=== PATIENT | female | born 1965 | race Caucasian/White ===

== ENCOUNTER → 2016-08-22 | Outpatient (CLI) | payer OTHER ==
[~2016-08-22] MED LIST: GUAI100S6 PO; OLIVE LEAF; [UNRECOGNIZED DRUG - OTHER]
[2016-08-22 13:44] LABS: AUTOMATED NEUTROPHIL # 4.3 TH/MM3 (1.8-7.7); BASOPHIL # 0.1 TH/MM3 (0-0.2); BASOPHIL % 0.9 % (0.0-2.0); EOSINOPHIL # 0.1 TH/MM3 (0-0.4); EOSINOPHIL % 1.2 % (0.0-4.0); HEMATOCRIT 35.4 % (35.0-46.0); HEMO FLAGS DIFF FINAL; LYMPH % 32.9 % (9.0-44.0); LYMPHOCYTE # 2.5 TH/MM3 (1.0-4.8); MEAN CELL VOLUME 85.8 FL (80.0-100.0); MEAN CORPUSCULAR HEMOGLOBIN 29.9 PG (27.0-34.0); MEAN CORPUSCULAR HGB CONC 34.8 % (32.0-36.0); MONO % 8.6 % (0.0-8.0); NEUT % 56.4 % (16.0-70.0); PLATELET COUNT 254 TH/MM3 (150-450); RED BLOOD COUNT 4.13 MIL/MM3 (4.00-5.30); RED CELL DISTRIBUTION WIDTH 12.6 % (11.6-17.2); WHITE BLOOD COUNT 7.6 TH/MM3 (4.0-11.0)
[2016-08-22 14:16] LABS: ALKALINE PHOSPHATASE 93 U/L (45-117); ALT (GPT) 23 U/L (10-53); ANION GAP 8 MEQ/L (5-15); AST (GOT) 21 U/L (15-37); BICARBONATE 27.7 MEQ/L (21.0-32.0); BLOOD UREA NITROGEN 13 MG/DL (7-18); CHLORIDE 102 MEQ/L (98-107); GLOMERULAR FILTRATION RATE 96 ML/MIN (>89); GLUCOSE,FASTING 93 MG/DL (74-99); HDL CHOLESTEROL 58.4 MG/DL (40.0-60.0); LDL CHOLESTEROL 137 MG/DL (0-99); POTASSIUM 3.9 MEQ/L (3.5-5.1); SODIUM (NA) 138 MEQ/L (136-145); THYROXINE (T4) 7.3 MCG/DL (4.8-13.9); TOTAL BILIRUBIN ADULT 0.3 MG/DL (0.2-1.0)
== END ==
LOC: CLAB 13:13
PROVIDERS: ATTEND Family Medicine
DX: R53.83 Other fatigue (principal)
CPT/HCPCS: 36415; 80053; 80061; 84436; 84443; 84480; 85025

== ENCOUNTER 2017-01-20 13:51 | Emergency (ER) | payer OTHER ==
[~2017-01-20] VITALS: Ht 154.9 cm; Wt 56.0 kg
[2017-01-20 13:54] VITALS: BP 128/73; PULSE 62; RESP 16; TEMP 98.4; O2SAT 99
--- NOTE | 2017-01-20 14:01 | PD ---
Physical Exam Time Seen by Provider: 13:58 Narrative 51yo F, [employer] employee, c/o L thumb pain after a stack of chairs went down and crushed her thumb this morning. Patient seen in triage. VS reviewed. Awaiting bed placement. Data Data Last Documented VS Vital Signs Date Time Temp Pulse Resp B/P Pulse Ox O2 Delivery O2 Flow Rate FiO2 01/20/17 13:54 98.4 62 16 128/73 99 Room Air MDM Supervised Visit with EARNEST: Elizabeth Peña Jan 20, 2017 14:01
--- NOTE | 2017-01-20 14:18 | RADRPT ---
EXAM DATE/TIME: 01/20/2017 14:18 [place] COMPARISON: No previous studies available for comparison. INDICATIONS : Patient states stack of chairs fell on left thumb. Complains of pain in DIPJ of first digit left jessica summers MEDICAL HISTORY : None. SURGICAL HISTORY : None. ENCOUNTER: Initial ACUITY: 1 day PAIN SCORE: 7/10 LOCATION: Left hand, thumb FINDINGS: Examination of the first digit of the left hand demonstrates no evidence of fracture or dislocation. No radiopaque foreign bodies are seen. The soft tissues are intact. CONCLUSION: No acute fracture or joint dislocation. Rigo Jenkins MD on January 20, 2017 at 14:15 Board Certified Radiologist. This report was verified electronically.
--- NOTE | 2017-01-20 14:27 | PD ---
HPI Chief Complaint: Injury Time Seen by Provider: 14:22 Travel History International Travel<30 days: No Contact w/Intl Traveler<30days: No Traveled to known affect area: No History of Present Illness HPI 51-year-old female arrives complaining of pain in the left thumb. Multiple stacked chairs fell upon the interphalangeal articulation of the left thumb several hours prior to ER arrival. She's had minimal pain in the area since. The pain is worse with palpation and range of motion. Ice and elevation were helpful earlier. PFSH Past Medical History High Cholesterol: Yes Diabetes: No Diminished Hearing: No Glaucoma: No Hepatitis: No Hiatal Hernia: No Hypertension: No Neurologic: Yes (REYNAUD'S SYNDROME) Thyroid Disease: No Tetanus Vaccination: < 5 Years Influenza Vaccination: No ?: Not : 2 Para: 2 Miscarriage: 0 : 0 Past Surgical History Cardiac Surgery: Yes (CARDIIAC CATH) Genitourinary Surgery: Yes (ESWL) Oral Surgery: Yes (TONSILLECTOMY) Pacemaker: No Tonsillectomy: Yes Social History Alcohol Use: Yes (RARE GLASS WINE) Tobacco Use: No Substance Use: No Allergies-Medications (Allergen,Severity, Reaction): Coded Allergies: No Known Allergies (Verified , 01/20/17) Reported Meds & Prescriptions Reported Meds & Active Scripts Active No Active Prescriptions or Reported Medications Review of Systems Musculoskeletal: Positive: Pain Physical Exam Narrative GENERAL: 51 yo F, WNWD, pleasant, NAD SKIN: Warm and dry. HEAD: Normocephalic. EYES: No scleral icterus. No injection or drainage. GASTROINTESTINAL: Abdomen soft, non-tender, nondistended. MUSCULOSKELETAL: No cyanosis, or edema. TTP left thumb without gross deformity. Hand eating disorder specialist equal and intact bilaterally. BACK: Nontender without obvious deformity. No CVA tenderness. Data Data Last Documented VS Vital Signs Date Time Temp Pulse Resp B/P Pulse Ox O2 Delivery O2 Flow Rate FiO2 01/20/17 13:54 98.4 62 16 128/73 99 Room Air VS reviewed Orders Finger (Nri1lny) (01/20/17 ) MDM Medical Decision Making Medical Screen Exam Complete: Yes Emergency Medical Condition: Yes Medical Record Reviewed: Yes Differential Diagnosis fracture, contusion, dislocation Narrative Course Last 24 hours Impressions Finger X-Ray 01/20/17 0000 Signed Impressions: Service Date/Time: Friday, January 20, 2017 14:18 - CONCLUSION: No acute fracture or joint dislocation. Rigo Jenkins MD Pt reassured. Ok for return to work. Diagnosis Primary Impression: Thumb injury Qualified Code: S69.92XA - Thumb injury, left, initial encounter Additional Instructions: You have a choice when it comes to health care, and we are glad that you chose [facility]. Hopefully, we have met your expectations on today's visit. You are welcome to return to [facility] at any time, as we are committed to meeting the health care needs of our community. Med/Other Pt SpecificInfo: No Change to Meds Scripts No Active Prescriptions or Reported Meds Disposition: 01 DISCHARGE HOME Condition: Stable Sage Szymanski MD Jan 20, 2017 14:27
== END 2017-01-20 14:46 | disposition home or self-care (01) ==
LOC: NEPD 13:51
DX: S69.92XA Unspecified injury of left wrist, hand and finger(s), initial encounter (principal); I73.00 Raynaud's syndrome without gangrene; E78.00 Pure hypercholesterolemia, unspecified; W22.03XA Walked into furniture, initial encounter
CPT/HCPCS: 73140; 99283

== ENCOUNTER → 2017-12-06 | Outpatient (CLI) | payer OTHER ==
[2017-12-06 08:41] LABS: AUTOMATED NEUTROPHIL # 4.6 TH/MM3 (1.8-7.7); BASOPHIL # 0.1 TH/MM3 (0-0.2); BASOPHIL % 0.8 % (0.0-2.0); EOSINOPHIL # 0.1 TH/MM3 (0-0.4); EOSINOPHIL % 1.1 % (0.0-4.0); HEMATOCRIT 40.6 % (35.0-46.0); HEMOGLOBIN 14.2 GM/DL (11.6-15.3); LYMPHOCYTE # 1.9 TH/MM3 (1.0-4.8); MEAN CELL VOLUME 86.4 FL (80.0-100.0); MEAN CORPUSCULAR HEMOGLOBIN 30.1 PG (27.0-34.0); MEAN CORPUSCULAR HGB CONC 34.9 % (32.0-36.0); MEAN PLATELET VOLUME 7.5 FL (7.0-11.0); MONO % 8.8 % (0.0-8.0); MONOCYTE # 0.6 TH/MM3 (0-0.9); NEUT % 63.3 % (16.0-70.0); PLATELET COUNT 283 TH/MM3 (150-450); RED CELL DISTRIBUTION WIDTH 12.6 % (11.6-17.2); WHITE BLOOD COUNT 7.2 TH/MM3 (4.0-11.0)
[2017-12-06 09:06] LABS: ALBUMIN 4.2 GM/DL (3.4-5.0); AST (GOT) 23 U/L (15-37); BICARBONATE 29.4 MEQ/L (21.0-32.0); BLOOD UREA NITROGEN 9 MG/DL (7-18); CALCIUM 9.1 MG/DL (8.5-10.1); CHLORIDE 101 MEQ/L (98-107); CREATININE 0.64 MG/DL (0.50-1.00); GLOMERULAR FILTRATION RATE 97 ML/MIN (>89); GLUCOSE,FASTING 110 MG/DL (74-99); MAGNESIUM 2.3 MG/DL (1.5-2.5); SODIUM (NA) 136 MEQ/L (136-145)
[2017-12-06 09:21] LABS: ALKALINE PHOSPHATASE 90 U/L (45-117); ALT (GPT) 26 U/L (10-53); CHOLESTEROL 247 MG/DL (120-200); HDL CHOLESTEROL 49.4 MG/DL (40.0-60.0); LDL CHOLESTEROL 176 MG/DL (0-99); THYROXINE (T4) 8.6 MCG/DL (4.8-13.9); TOTAL BILIRUBIN ADULT 0.2 MG/DL (0.2-1.0); TOTAL PROTEIN 7.4 GM/DL (6.4-8.2); TRIGLYCERIDES 108 MG/DL (42-150)
[2017-12-06 17:06] LABS: HEMOGLOBIN A1C 5.5 % (4.3-6.0)
== END ==
LOC: CLAB 08:15
PROVIDERS: ATTEND Family Medicine
DX: R07.9 Chest pain, unspecified (principal); F41.9 Anxiety disorder, unspecified
CPT/HCPCS: 36415; 80053; 80061; 82533; 83036; 83735; 84436; 84443; 85025

== ENCOUNTER 2018-01-01 11:06 | Day surgery (SDC) | payer OTHER ==
[~2018-01-01] VITALS: Ht 154.9 cm; Wt 58.2 kg
[2018-01-01] MEDS ORDERED: IOHEXOL 350 MG/ML 50 ML BTL (for Cath Lab) OTHER ONE (11:07)
[2018-01-01] MEDS ORDERED: NS 1000P @30 MLS/HR (KVO) IV SCH (12:00)
[2018-01-01 12:15] VITALS: BP 135/80; PULSE 70; RESP 18; TEMP 97.8; O2SAT 99
[2018-01-01 12:24] LABS: AUTOMATED NEUTROPHIL # 4.6 TH/MM3 (1.8-7.7); BASOPHIL # 0.1 TH/MM3 (0-0.2); BASOPHIL % 0.8 % (0.0-2.0); EOSINOPHIL # 0.1 TH/MM3 (0-0.4); EOSINOPHIL % 1.2 % (0.0-4.0); HEMATOCRIT 43.3 % (35.0-46.0); HEMOGLOBIN 14.9 GM/DL (11.6-15.3); LYMPH % 27.8 % (9.0-44.0); MEAN CELL VOLUME 86.7 FL (80.0-100.0); MEAN CORPUSCULAR HEMOGLOBIN 29.7 PG (27.0-34.0); MEAN CORPUSCULAR HGB CONC 34.3 % (32.0-36.0); MEAN PLATELET VOLUME 7.8 FL (7.0-11.0); MONO % 6.7 % (0.0-8.0); MONOCYTE # 0.5 TH/MM3 (0-0.9); NEUT % 63.5 % (16.0-70.0); PLATELET COUNT 314 TH/MM3 (150-450); RED CELL DISTRIBUTION WIDTH 12.8 % (11.6-17.2); WHITE BLOOD COUNT 7.2 TH/MM3 (4.0-11.0)
[2018-01-01] MEDS ORDERED: MAGN100T2 PO (12:25)
[2018-01-01] MEDS ORDERED: ASPI81TA23 PO (12:25)
[2018-01-01] MEDS ORDERED: MULT-65 PO (12:25)
[2018-01-01] MEDS ORDERED: VITA500T83 PO (12:25)
[2018-01-01] MEDS ORDERED: NITR0.4S SL (12:25)
[2018-01-01] MEDS ORDERED: HEPARIN-NS/PF INJ 1,500 ML ONE (12:27)
[2018-01-01 12:39] LABS: BICARBONATE 29.5 MEQ/L (21.0-32.0); CALCIUM 8.8 MG/DL (8.5-10.1); CREATININE 0.64 MG/DL (0.50-1.00); PROTHROMBIN TIME - PATIENT 10.1 SEC (9.8-11.6)
[2018-01-01] MEDS ORDERED: MIDAZOLAM HCL 2 MG/2 ML VIAL ONE (13:04)
--- NOTE | 2018-01-01 14:05 | CATHPROC ---
[facility] HIS Report Study Information Study Number Admission Scheduled Start Study Start [id number] Jan 01 2018 11:06AM 01/01/2018 Jan 01 2018 12:41PM [facility] Cardiac Catheterization Admit Source Facility Department Other [facility] - Marine Services Technician Physician and Clinical Staff Initial MD Shi, Tobin Artificial Plastic Eye Maker Jack BRAXTON, Manuel Golden cathlab, cathlab Recorder Regla Hill,LAND SURVEY TECHNICIAN TECH2 Scrub Glory Singleton ,RT(R) Procedures Performed Procedure Location (Site) Vessel Name Angiogram LV LV Ventricle Coronary Angiograms LCA Left Coronary Coronary Angiograms RCA Right Coronary L Heart Cath Equipment Time Wash Driller Helper Description Size Mfg Part Number Used/Scraped TRANSDUCER, TRUWAVE [id number] 12:57 [email or web address] * Used W/STOCKCOCK *[id number] INTRODUCER SET, 12:57 [employer] FR 5 [id number] *[id number] Used MICROPUNCTURE STIFF 538-476 *[id number] 538-420 *[id number] 538-453S *[id number] 12:57 Taggled BLANKET,WARM AIR CCL * Used *[id number] 12:57 [employer]aggled PACK, CCL CUSTOM * Used *[id number] 12:57 Al Detal PACER PEN, SKIN DUAL W/ RULER * Used *[id number] 12:57 [employer] WIRE, 3MMJ .035 180CM 180CM Used *[id number] PROBE COVER, STERILE [id number] 12:57 [employer] * Used ULTRASOUND W/ GEL *[id number] 12:57 NAMIC MANIFOLD, 4 PORT * Used *[id number] TUBING, PRESSURE INJECTION [id number] 13:37 NAMIC 72" Used 72" *[id number] 12:57 [employer]COMED OMNIPAQUE, 350 MG, 150ML 150ML [id number] Used [id number] 12:57 [employer] MEDICAL SHEATH, FR4 TERUMO (10CM) FR 4 Used *[id number] History: Allergies Allergy Reaction No Known Allergies Sulfa History: Risk Factors Family History of Hypertension Dyslipidemia Previous DC Previous Heart Failure Premature CAD No Yes Yes No No Prior Valve Prior PCI Prior CABG Surgery No No No Cerebrovascular Peripheral Artery Chronic Lung On Dialysis Diabetes Disease Disease Disease No No No No No History: Stress Tests Stress or Imaging Studies Performed Yes Standard Exercise Stress Test No Stress Echo No Stress Test SPECT No Stress Test CMR Stress Test CMR Result Yes Indeterminant Cardiac CTA Coronary Calcium Score No No History: Other Current Smoker No Labs Hgb (g/dl) Hct (%) WBC (l/cumm) Platelets (thousands) 11.60-17.00 35.00-51.00 4.00-11.00 150.00-450.00 14.9 43.3 7.2 314 Glucose (mg/dl) BUN (mg/dl) Creatinine (mg/dl) BUN:Creatinine (1:x) 74.00-106.00 7.00-18.00 0.50-1.30 10.00-20.00 99 12 0.6 20 Na (meq/l) K (meq/l) 136.00-145.00 3.50-5.10 138 4 INR (PTT:PT) 0.90-1.10 1 Medication Medication Total Dose (Bolus/Oral) Medication Total Dosage/Unit 1% XYLOCAINE 20 mL FENTANYL 100 mcg OXYGEN 2 l/min VERSED 2 mg Medications (Bolus/Oral) Medication Time Given Dosage/Unit Administered By Reason VERSED 01/01/2018 1:21:42 PM 2 mg Manuel Santiago RN Patient arrived on 2 mg VERSED given by Manuel Santiago RN in Left Antecubital via Peripheral IV. Ordere d by Tobin Shi. FENTANYL 01/01/2018 1:22:04 PM 50 mcg Manuel Santiago RN Patient arrived on 50 mcg FENTANYL given by Manuel Santiago RN in Left Antecubital via Peripheral IV. Or dered by Tobin Shi. 1% XYLOCAINE 01/01/2018 1:25:39 PM 20 mL Tobin Shi Patient arrived on 20 mL 1% XYLOCAINE given by Tobin Shi in Right Groin via Subcutaneous. Orde red by Tobin Shi. OXYGEN 01/01/2018 1:26:49 PM 2 l/min Manuel Santiago RN Patient arrived on 2 l/min OXYGEN given by Manuel Santiago RN via Nasal. Ordered by Tobin Shi. FENTANYL 01/01/2018 1:43:01 PM 50 mcg Manuel Santiago RN 50 mcg FENTANYL given in lab by Manuel Santiago RN via Peripheral IV. Ordered by Tobin Shi. Medication (Drip) Medication Time Given Dosage/Unit Concentration/Unit Diluent (ml) Solution IV Bolus 01/01/2018 12:46:38 PM 0 mL (Bolus) 500 NaCl .9 Patient arrived on 0 mL (Bolus) IV Bolus given by Tobin Shi in Right Antecubital via Periphera l IV. Using NaCl .9. Ordered by Tobin Shi. Initial Case Assessment Cardiovascular HR NIBP Chest Pain 70 131/81 0 Edema Present Skin color Skin None Normal Warm Dry Circulatory - Right Pulses Dorsalis Pedis Femoral 3 3 Scale (0,1,2,3,4,d) Circulatory - Left Pulses Dorsalis Pedis Femoral 3 3 Scale (0,1,2,3,4,d) Neurological State Oriented to time-place- Alert Moves all extremities person Respiration - General Respiration Rate SpO2 (%) (B/min) 15 97 Final Case Assessment Cardiovascular HR Rhythm NIBP Chest Pain 82 sr 128/78 0 Edema Present Skin color Skin None Normal Warm Dry Circulatory - Lower Extremities Color Lower Right Color Lower Left Normal Normal Neurological State Oriented to time-place- Alert Moves all extremities person Respiration - General Respiration Rate SpO2 (%) (B/min) 21 99 Chronological Log Time Study Chronological Log 12:46:12 Patient arrived via Bed. 12:46:13 Patient Name, D.O.B, / Armband Verified By R.N. 12:46:14 Consent signed by the physician and the patient and verified by the Marine Services Technician staff. 12:46:15 Pre-op and post- op instructions given; patient acknowledges understanding of instructions. 12:46:19 Patient has been NPO for Less than 6Hrs. 12:46:23 Skin Breakdown- 12:46:25 Patient Warmer Placed on the Table. 12:46:33 Snow Prominences Protected 12:46:37 A # 20 IV was noted in the Antecubital (left). Grade = 0 Patient arrived on 0 mL (Bolus) IV Bolus given by Tobin Shi in Right Antecubital via Per ipheral IV. Using NaCl 12:46:38 .9. Ordered by Tobin Shi. 12:46:39 History and physical on the chart or being dictated. Vitals capture started with the following parameters, Patient=Adult, Interval=5 min, Initial Pr ckjcqv=198 mmHg, 12:46:40 Deflation Rate=5 mmHg, Cuff placed on Left Arm 12:47:19 HR=70 bpm, QHPB=600/81 mmhg, SpO2=97.0 %, Resp=15 B/min, Pain=0, Morro=10, Tomlinson=2 Assessment: Initial Case, HR=70 BPM, STUS=093/81 mmhg, Chest Pain=0, Edema=None, Color=Normal, Skin = Warm, Dry Right Pulses: Efrain Ped=3, Femoral=3 12:47:52 Left Pulses: Efrain Ped=3, Femoral=3 Neurological: State=Alert, Ox3, SIMMS Respiration: Resp=15 B/min, SpO2=97 % 12:52:16 HR=68 bpm, REMV=065/73 mmhg, SpO2=98.0 %, Resp=15 B/min, Pain=0, Morro=10, Tomlinson=2 12:53:52 Reference ECG taken 12:57:15 HR=59 bpm, LFHS=653/76 mmhg, SpO2=98.0 %, Resp=12 B/min, Pain=0, Morro=10, Tomlinson=2 12:59:12 Bilateral groins prepped with 2% chlorhexidine, and draped after a 3 minute waiting time. 13:02:16 HR=70 bpm, NCIU=548/76 mmhg, SpO2=99.0 %, Resp=16 B/min, Pain=0, Morro=10, Tomlinson=2 13:03:14 Pressure channel 1 zeroed. 13:07:15 HR=71 bpm, IDBV=569/67 mmhg, SpO2=98.0 %, Resp=14 B/min, Pain=0, Morro=10, Tomlinson=2 13:12:14 HR=69 bpm, ELBQ=163/70 mmhg, SpO2=98.0 %, Resp=13 B/min, Pain=0, Morro=10, Tomlinson=2 13:17:13 HR=71 bpm, YPGW=666/74 mmhg, SpO2=98.0 %, Resp=13 B/min, Pain=0, Morro=10, Tomlinson=2 13:20:29 MD arrived. Patient arrived on 2 mg VERSED given by Manuel Santiago RN in Left Antecubital via Peripheral IV. Ordered by Yuridia 13:21:42 Humayun. Patient arrived on 50 mcg FENTANYL given by Manuel Santiago RN in Left Antecubital via Peripheral IV. Ordered by Yuridia 13:22:04 Tobin. 13:22:14 HR=72 bpm, WTVM=929/74 mmhg, SpO2=98.0 %, Resp=10 B/min, Pain=0, Morro=10, Tomlinson=2 Time Out. Correct patient, correct procedure, correct physician, labs, allergies, and equipment verified with chemical laboratory chief 13:24:48 team present. Fire risk assesment completed (see hard stop sheet for coding). Time Out Conc urred by MD and individual staff in procedure. 13:24:53 Case Start Patient arrived on 20 mL 1% XYLOCAINE given by Tobin Shi in Right Groin via Subcutaneous . Ordered by 13:25:39 Tobin Shi. 13:26:49 Patient arrived on 2 l/min OXYGEN given by Manuel Santiago RN via Nasal. Ordered by Frankie Shi. 13:27:15 HR=75 bpm, DKAD=720/70 mmhg, SpO2=92.0 %, Resp=13 B/min, Pain=0, Morro=10, Tomlinson=2 13:28:31 Access site was Right Femoral Artery. A INTRODUCER SET, MICROPUNCTURE STIFF FR 5 was advanced into the Fem Art (right) using the Perc utaneous 13:28:40 technique. A SHEATH, FR4 TERUMO (10CM) FR 4 was exchanged in the Fem Art (right). This was necessary in or tracy to 13:29:55 accomodate a larger catheter. A JL 4.0 INFINITI CATHETER FR 4 was advanced over a wire. OMNIPAQUE, 350 MG, 150ML 150ML was us ed for 13:30:49 injections. Recorded Pressure: Ao, HR=79, Condition=Condition 1 13:31:46 (Aorta) Ao 129/67/95 13:32:14 The LCA was injected and visualized at various angles. OMNIPAQUE, 350 MG, 150ML 150ML used . 13:32:16 HR=76 bpm, SCEB=526/74 mmhg, SpO2=99.0 %, Resp=12 B/min After removing the current catheter a 3DRC INFINITI CATHETER FR 4 was advanced over a WIRE, 3MM J .035 180CM 13:33:03 180CM. 13:35:37 The RCA was injected and visualized at various angles. OMNIPAQUE, 350 MG, 150ML 150ML used . 13:37:15 HR=85 bpm, BIRL=159/73 mmhg, QtF2=673.0 %, Resp=12 B/min After removing the current catheter a PIGTAIL ANG. INFINITI CATHETER FR 4 was advanced over a W SANDRA, 3MMJ .035 13:37:28 180CM 180CM. Recorded Pressure: LV, HR=90, Condition=Condition 1 13:38:32 (Left Ventricle) LV 123/0/9 13:39:50 The LV was injected at 8 cc/sec for a total of 20. OMNIPAQUE, 350 MG, 150ML 150ML used. Recorded Pressure: LV, Ao, HR=97, Condition=Condition 1 13:40:26 (Left Ventricle) LV 139/2/7, (Aorta) Ao 137/70/100 13:40:40 Catheter was removed 13:42:16 HR=94 bpm, WTOQ=551/78 mmhg, MyA6=842.0 %, Resp=20 B/min, Pain=0, Morro=10, Tomlinson=2 13:43:01 50 mcg FENTANYL given in lab by Manuel Santiago RN via Peripheral IV. Ordered by Andie Shi. 13:43:19 Case End (Physician broke scrub) Assessment: Final Case, HR=82 BPM, Rhythm=sr, MFPT=698/78 mmhg, Chest Pain=0, Edema=None, Color =Normal, Skin = Warm, Dry Lower Right Extremities: Color=Normal 13:44:34 Lower Left Extremities: Color=Normal Neurological: State=Alert, Ox3, SIMMS Respiration: Resp=21 B/min, SpO2=99 % 13:45:05 No case complications noted. 13:45:06 Cine recording checked. 13:45:45 Bedside Report will be given. 13:45:53 A Left Heart Cath was performed. 13:47:03 Sheath removed; pressure applied to access site. 13:47:17 HR=82 bpm, CYJT=645/76 mmhg, SpO2=99.0 %, Resp=27 B/min 13:52:19 HR=81 bpm, FOVQ=810/78 mmhg, SpO2=96.0 %, Resp=9 B/min, Pain=0, Morro=10, Tomlinson=2 13:57:18 HR=77 bpm, AOIZ=650/72 mmhg, SpO2=97.0 %, Resp=23 B/min, Pain=0, Morro=10, Tomlinson=2 14:01:06 Sterile dressing applied to site 14:04:36 Patient moved to stretcher End Study - Contrast Media Used In Study Contrast Total Opened (mL) Total Used (mL) Total Wasted (mL) Omnipaque 40 40 0 End Study - Maximum Contrast Load Max Contrast Load (mL) 484.8 End Study - Radiation Exposure Fluoro Time (minutes) 2.1 End Study - Sheaths Sheaths Pulled By Sheath Hold Time (min) Glory Singleton End Study - Patient Disposition Complications Transferred To No Marine Services Technician Holding
--- NOTE | 2018-01-01 15:27 | MA ---
cc: Tobin Shi MD, James E MD DATE: 01/01/2018 INDICATIONS FOR PROCEDURE: Unstable angina, chest pain on exertion, very bad family history of coronary artery disease. Younger brother had heart disease. CONSENT: Fully informed consent was obtained prior to the procedure. The risks of , bleeding, myocardial infarction, perforation, aspiration, foreseen and unforeseen complications were reviewed. The patient appeared to fully understand. The patient also has a history of hyperlipidemia and has not been taking statins. PROCEDURES: 1. Left heart catheterization. 2. Sedation. PROCEDURAL STATEMENTS: The patient was draped and prepped in the usual manner. The right femoral artery was entered via micropuncture technique with a 4-Lebanese sheath. Left and right coronary catheters were used to intubate Left and right coronary arteries, a pigtail catheter used to intubate the left ventricle and multiple angiographic views carried out. At the end of the catheterization procedure, all catheters and sheaths were removed. Manual pressure was applied until hemostasis was achieved and the patient was returned to her room in stable condition. FINDINGS: I. HEMODYNAMICS: Aortic pressure was 137/70 with a mean of 100. Left ventricular pressure was 139 with a left ventricular end-diastolic pressure of 7. There was no evidence of significant gradient across the LV outflow tract and aortic valve. II. LEFT VENTRICULOGRAM: The overall left ventricular ejection fraction is 60%. There was no evidence of significant mitral regurgitation nor mural thrombus. III. CORONARY ARTERIES: The left main was free of significant disease. The left anterior descending artery was free of significant disease. The left circumflex coronary artery was a large artery with a large first obtuse marginal branch and was also free of significant disease. The diagonal branch was also free of significant disease. The second obtuse marginal branch was small. The right coronary artery was codominant with a large posterior descending artery and very small posterolateral area. CONCLUSION: 1. Near-normal coronaries with minimal plaquing. 2. Normal left ventricular function. PLAN: Medical management with a cholesterol reduction. MD COLLIN Matthew/AVTAR , 01:57 PM , 03:27 PM
[2018-01-01] MEDS ORDERED: ACETAMINOPHEN 325 MG TAB PO ONE (18:00)
--- NOTE | 2018-01-02 16:49 | EKG ---
Date Performed: 01/01/2018 Time Performed: 12:21:38 PTAGE: 52 years EKG: Sinus rhythm . Normal ECG NO PREVIOUS TRACING DOCTOR: Tobin Shi Interpretating Date/Time 01/02/2018 16:45:43
== END 2018-01-01 18:30 | disposition home or self-care (01) ==
LOC: HDIC 11:06 → HDOC 11:06
PROVIDERS: ATTEND Internal Medicine Cardiovascular Disease
DX: I20.0 Unstable angina (principal); I34.0 Nonrheumatic mitral (valve) insufficiency; F41.9 Anxiety disorder, unspecified; Z82.49 Family history of ischemic heart disease and other diseases of the circulatory system
CPT/HCPCS: 80048; 85025; 85610; 85730; 93005; 93458; 99152; 99153; C1769; C1893; J1644; J2250; J3010; Q9967